=== PATIENT | male | born 1940 | race Caucasian/White ===

== ENCOUNTER 2017-10-04 09:50 | Emergency (ER) | payer OTHER, BC ==
[~2017-10-04] VITALS: Ht 170.2 cm; Wt 73.3 kg
[~2017-10-04 09:50] MED LIST: ADVAIR 100/501 DISK IH; AMARYL1 MG PO; CLARITIN10 MG PO; DIGOXIN250 MCG PO; ENDOCET 5-3251 EACH PO; FLONASE16 G1 BOTH NARES; GLUCOPHAGE1000 MG PO; IBUPROFEN600 MG PO; LO-DOSE ASPIRIN81 M1 PO; LOPRESSOR25 MG PO; SIMVASTATIN40 MG PO; SUDAFED 12-HOU120 MG PO
[2017-10-04 10:29] LABS: HEMATOCRIT 37.5 % (38.0-50.0); HEMOGLOBIN 12.8 G/DL (12.5-16.6); MCH 31.4 PG (29.0-34.0); MCHC 34.1 G/DL (30.0-36.0); MCV 92.1 FL (86-99); PLATELET COUNT 262 K/uL (156-360); RBC DIS.WIDTH-CV 12.2 % (11.8-14.6); RBC DIS.WIDTH-SD 41.1 % (39-53); RED BLOOD COUNT 4.07 M/uL (4.00-5.50); WHITE BLOOD COUNT 5.6 K/uL (4.1-10.2)
[2017-10-04 10:38] LABS: INTER. NORMALIZED RATIO 2.1
[2017-10-04 10:40] LABS: ALBUMIN 3.8 g/dL (3.2-4.8); CHLORIDE 105 mEq/L (99-109); POTASSIUM 3.6 mEq/L (3.7-5.4); SODIUM 143 mEq/L (136-147)
[2017-10-04 10:41] LABS: PTT 36.7 SEC (25-37)
[2017-10-04 10:42] LABS: GLUCOSE 145 mg/dL (70-99)
[2017-10-04 10:43] LABS: TOTAL PROTEIN 6.4 g/dL (6.4-8.3)
[2017-10-04 10:44] LABS: TOTAL BILIRUBIN 0.5 mg/dL (0.0-1.0)
[2017-10-04 10:46] LABS: ALKALINE PHOSPHATASE 76 IU/L (3-129); CREATININE 0.9 mg/dL (0.6-1.3); GFR ESTIMATE (CALCULATED) > 59 mL/min/ (58.99-99999)
[2017-10-04 10:47] LABS: UREA NITROGEN (BUN) 19 mg/dL (9-23)
[2017-10-04 10:48] LABS: AST (GOT) 13 IU/L (2-34)
[2017-10-04 10:49] LABS: ALT (GPT) 16 IU/L (3-49)
[2017-10-04 11:40] LABS: APPEARANCE SL.HAZY ((CLEAR)); BILIRUBIN NEGATIVE; BLOOD LARGE; COLOR YELLOW ((YELLOW)); GLUCOSE (STRIP) NEGATIVE; KETONES NEGATIVE; LEUKOCYTES NEGATIVE; NITRITE NEGATIVE; PROTEIN (STRIP) 30; SPECIFIC GRAVITY 1.015 (1.000-1.030); UROBILINOGEN 0.2 MG/DL (0.2-1.0)
[2017-10-04 12:15] LABS: EPITHELIAL CELLS NONE SEEN /HPF; MUCUS NONE SEEN /LPF; RED BLOOD CELLS 20-30 /HPF (0-5); WHITE BLOOD CELLS NONE SEEN /HPF (0-5)
[2017-10-04 12:16] LABS: BACTERIA RARE /HPF; UCUL ADDED? NO
[2017-10-04 13:07] VITALS: BP 133/68
[2017-10-05 10:47] LABS: STOOL OCCULT BLD 1ST SPECIMEN NEGATIVE
== END 2017-10-04 13:22 | disposition home or self-care (01) ==
LOC: EME 09:50
PROVIDERS: Emergency Medicine Emergency Medical Services
DX: R31.29 Other microscopic hematuria (principal); R53.1 Weakness; D68.9 Coagulation defect, unspecified; Z79.01 Long term (current) use of anticoagulants; D64.9 Anemia, unspecified; Z85.46 Personal history of malignant neoplasm of prostate; Z86.718 Personal history of other venous thrombosis and embolism; E11.9 Type 2 diabetes mellitus without complications; J45.909 Unspecified asthma, uncomplicated; Z87.891 Personal history of nicotine dependence; Z79.4 Long term (current) use of insulin; Z79.82 Long term (current) use of aspirin; Z88.5 Allergy status to narcotic agent
CPT/HCPCS: 80053; 81003; 82272; 85027; 85610; 85730; 99281; 99285